=== PATIENT | female | born 1945 | race Caucasian/White ===

== ENCOUNTER 2019-03-17 05:12 | Day surgery (SDC) | payer MEDICARE, SELFPAY ==
[2019-03-14 16:37] VITALS: BMI 28.7
[2019-03-17] VITALS (8 sets, daily range): BP systolic 130–176; BP diastolic 71–121; PULSE 52–100; RESP 14–25; O2SAT 98–100
--- NOTE | 2019-03-17 | ECHO_ITS ---
Patient Info Name: Ashtyn Monroe Age: 73 years : 1945 Gender: Female Ht: 63 in Wt: 162 lbs BSA: 1.83 m2 HR: 96 bpm Technical Quality: Good Exam Date: 03/17/2019 7:11 AM Exam Location: [facility] Pul[facility] Patient Status: Outpatient Admit Date: 03/17/2019 Staff Ordering Physician: Milo Larson DO Safety Engineer: Connie Merchant RDCS Attending Provider: Milo Larson DO Referring Physician: Neo MEHTA; Exam Type: CA echo transesophageal Study Info Indications I48.0 - Paroxysmal atrial fibrillation Complete two-dimensional, color flow and Doppler transesophageal study is performed. Procedure Details Risks/benefits/alternative treatment discussed with patient and she is agreeable for procedure. Conscious sedation with Versed and Fentanyl given. TIM probe advanced to posterior oropharynx and probe swallowed into esophagus without incident. Images were obtained. Agitated saline administered x 1. TIM probe withdrawn and no blood noted on TIM probe tip. No complications. She tolerated procedure well. Summary 1. Left ventricular chamber dimension is normal. 2. Left ventricular systolic function is normal with an ejection fraction 50-55%. 3. Right ventricular chamber dimension is moderately enlarged. 4. Right ventricular systolic function is moderately reduced. 5. Left atrial chamber dimension is moderately enlarged. 6. There is trace aortic valve regurgitation. 7. There is mild mitral valve regurgitation. 8. There is mild to moderate tricuspid valve regurgitation. Left Ventricle Diastolic function is not assessed. Left ventricular systolic function is normal with an ejection fraction 50-55%. Left ventricular chamber dimension is normal. Right Ventricle Right ventricular systolic function is moderately reduced. Right ventricular chamber dimension is moderately enlarged. Left Atria Left atrial chamber dimension is moderately enlarged. Right Atria Right atrial chamber dimension is normal. Atrial Septum Intact interatrial septum visualized by color flow and agitated saline imaging. Atrial Appendage There is no thrombus visualized in the left atrial appendage. Aortic Valve The aortic valve is trileaflet. There is no aortic valve stenosis. There is trace aortic valve regurgitation. Pulmonic Valve There is no pulmonic regurgitation. Mitral Valve There is no mitral valve stenosis. There is mild mitral valve regurgitation. Tricuspid Valve RVSP is not measured. There is mild to moderate tricuspid valve regurgitation. Pericardium/Pleural There is no pericardial effusion. Inferior Vena Cava Not well visualized inferior vena cava. Aorta The aortic root size at the sinus of Valsalva is normal. Report Signatures
--- NOTE | 2019-03-17 06:05 | ECG_ITS ---
Measurements Intervals [place] Rate: 109 P: AR: 0 QRS: -5 QRSD: 95 T: 28 QT: 370 QTc: 499 Interpretive Statements ATRIAL FIBRILLATION WITH RAPID VENTRICULAR RESPONSE INCOMPLETE RIGHT BUNDLE BRANCH BLOCK DELAYED PRECORDIAL R/S TRANSITION BORDERLINE ST-T WAVE ABNORMALITY- LATERAL LEADS ABNORMAL ECG Electronically Signed On 03-17-2019 7:21:45 BOTTLING SUPERVISOR by Milo Larson D.O.
[2019-03-17 07:24] LABS: Blood Urea Nitrogen 17 mg/dL (7-17); Calcium 8.1 mg/dL (8.4-10.2); Carbon Dioxide 22 mmol/L (22-30); Chloride 104 mmol/L (98-107); Estimated CRCL calculation 51 ml/min; Estimated Glomerular Filt Rate > 60; Glucose 100 mg/dL (65-105); Potassium 4.2 mmol/L (3.4-5.0); Sodium 135 mmol/L (137-145)
--- NOTE | 2019-03-17 07:51 | SUR.OPER ---
[address] [facility] study
--- NOTE | 2019-03-17 07:55 | ECG_ITS ---
Measurements Intervals [place] Rate: 57 P: 14 NH: 182 QRS: -10 QRSD: 100 T: 17 QT: 459 QTc: 449 Interpretive Statements SINUS BRADYCARDIA INCOMPLETE RIGHT BUNDLE BRANCH BLOCK DELAYED PRECORDIAL R/S TRANSITION VOLTAGE CRITERIA FOR LVH BORDERLINE ECG Electronically Signed On 03-17-2019 8:11:43 ROOFING LABORER by Milo Larson D.O.
--- NOTE | 2019-03-17 08:03 | SUR.OPER ---
see moderate sedation flowheet for medication administration
--- NOTE | 2019-03-17 08:48 | WPDCARDVER ---
Cardioversion Cardioversion Date of procedure: 03/17/19 Procedure: DC Cardioversion Indications: Symptomatic Atrial fibrillation with RVR Description of procedure: Risks/benefits/alternative treatment discussed with patient and she gave informed consent. TIM was performed and no HONEY or LA thrombus noted. BP 165-100 mmHg and HR 114 bpm in atrial fibrillation. Defibrillator pads placed on anterior and posterior chest. Adequate sedation given. Defibrillation set at 200 J biphasic synchonized energy and administered x1. Episcopal of sinus rhythm achieved. Patient tolerated procedure well. No complication. Sedation: Versed 3 mg and Fentanyl 25 mcg IV given for sedation. Conclusion: 1. Successful DC cardioversion from atrial fibrillation to Sinus rhythm.
== END 2019-03-17 09:30 | disposition home or self-care (01) ==
PROVIDERS: Visit Provider Internal Medicine Cardiovascular Disease
PROC: (CPT 93312; principal; 2019-03-17 08:00)
PROC: 5A2204Z Restoration of Cardiac Rhythm, Single (ICD-10-PCS; 2019-03-17 08:00)
DX: I48.0 Paroxysmal atrial fibrillation (principal); I10 Essential (primary) hypertension; Z79.899 Other long term (current) drug therapy
CPT/HCPCS: 36415; 80048; 83735; 92960; 93005; 93312; 93320; 93325; J2250; J3010

== ENCOUNTER 2022-03-13 08:58 | Outpatient (CLI) | payer MEDICARE, SELFPAY ==
[2022-03-13 10:06] LABS: Cholesterol 197 mg/dL (0-200); HDL Direct 66 mg/dL (40-60); LDL Cholesterol Calculated 120 mg/dL (<130); Triglycerides 54 mg/dL (0-150)
== END 2022-03-13 08:59 | disposition home or self-care (01) ==
LOC: CHSLAB 09:00
PROVIDERS: PCP Internal Medicine Cardiovascular Disease; Visit Provider Internal Medicine Cardiovascular Disease
DX: I10 Essential (primary) hypertension (principal)
CPT/HCPCS: 36415; 80061

== ENCOUNTER 2022-08-03 10:08 | Emergency (ER) | payer MEDICARE, SELFPAY ==
--- NOTE | ~2022-08-03 | US_ITS ---
Duplex Sonography of the bilateral lower extremities: Indication: Swelling Sagittal and transverse B-mode images as well as color-flow imaging were performed on the right and l eft femoral and popliteal veins. B-mode examination was done without and with compression in the tra nsverse plane. There is good visualization of the bilateral common femoral, proximal profunda femora l, superficial femoral, greater saphenous, and popliteal veins. Normal flow was seen on color-flow im aging. Normal compressibility was demonstrated. Visualized bilateral calf veins are also patent. Impression: No evidence of deep vein thrombosis involving either lower extremity. Reviewed, dictated and finalized at location M. Impression: No evidence of deep vein thrombosis involving either lower extremit y.
--- NOTE | ~2022-08-03 | CT_ITS ---
EXAMINATION: CTA chest PE protocol DATE: 08/03/2022 11:37 CDT INDICATION: Shortness of breath for 3 weeks. Elevated d-dimer. TECHNIQUE: Computed tomographic angiography (CTA) of the chest was performed with 100 mL Omnipaque-35 0 intravenous contrast. The dose-length product was 248.71 mGy-cm. Maximum intensity projection 3D-re constructions of the aorta and other arteries were constructed by the technologist on a separate work station. Automated exposure control and iterative reconstruction technique were employed. COMPARISON: Chest x-ray dated 11/09/2015. FINDINGS: Heart size normal. No significant pleural or pericardial effusion. Study is technically lucas quate. There are filling defects in right upper lobe segmental and subsegmental pulmonary arteries, c onsistent with pulmonary embolism, small thrombus burden. No focal airspace consolidation. No pneumot horax. No endobronchial lesions. No focal pulmonary nodules or masses. IMPRESSION: 1. Small filling defects right upper lobe segmental and subsegmental pulmonary arteries, consistent w ith pulmonary embolism, small thrombus burden. Reviewed, dictated and finalized at location L. IMPRESSION: 1. Small filling defects right upper lobe segmental and subsegmental pulmonary arteries, consistent with pulmonary embolism, small thrombus burden.
[2022-08-03 10:09] VITALS: BP 101/76; PULSE 112; RESP 16; O2SAT 96
[2022-08-03 10:19] VITALS: TEMP 36.3
--- NOTE | 2022-08-03 10:19 | ECG_ITS ---
Measurements Intervals [place] Rate: 71 P: AR: 0 QRS: -16 QRSD: 105 T: 74 QT: 425 QTc: 463 Interpretive Statements ATRIAL FIBRILLATION INCOMPLETE RIGHT BUNDLE BRANCH BLOCK [90+ ms QRS DURATION, TERMINAL R IN V1/V2, 40+ ms S IN I/aVL/V4/V5/V6] NONSPECIFIC ST & T-WAVE ABNORMALITY ABNORMAL RHYTHM ECG COMPARED TO ECG 03/17/2019 07:59:34 ATRIAL FIBRILLATION NOW PRESENT T-WAVE ABNORMALITY NOW PRESENT Electronically Signed On 08-03-2022 13:44:27 CDT by Debbie Pitts M.D.
--- NOTE | 2022-08-03 10:27 | PC.NURSE ---
cardiopulmonary called for EKG, fur cutting machine operator at bedside for lab draw.
[2022-08-03 10:33] LABS: Basophils Absolute Auto 0.02 K/mm3 (0.00-0.10); Basophils Percent Auto 0.3 % (0.0-1.0); Eosinophils Absolute Auto 0.21 K/mm3 (0.02-0.50); Eosinophils Percent Auto 3.2 % (1.0-6.0); Hematocrit 38.3 % (35.0-42.0); Hemoglobin 12.4 g/dL (11.7-13.8); Immature Granulocyte Absolute 0.03 K/mm3 (0.00-0.00); Immature Granulocyte Percent A 0.5 % (0.0-0.0); Lymphocytes Absolute Auto 0.59 K/mm3 (1.10-4.50); Lymphocytes Percent Auto 8.9 % (18.0-42.0); Mean Corpuscular HGB Conc 32.4 g/dL (32.0-36.0); Mean Corpuscular Volume 86.5 fL (78.0-102.0); Mean Platelet Volume 11.1 fl (9.2-11.8); Monocytes Absolute Auto 0.64 K/mm3 (0.10-0.90); Monocytes Percent Auto 9.6 % (2.0-11.0); Neutrophils Absolute Auto 5.2 K/mm3 (1.7-7.2); Neutrophils Percent Auto 77.5 % (50.0-70.0); Platelet Count Result 147 K/mm3 (150-420); Red Blood Count 4.43 M/mm3 (4.20-5.40); Red Cell Distribution Width 14.6 % (11.6-14.4); White Blood Count 6.7 K/mm3 (4.8-10.8)
[2022-08-03 10:40] VITALS: PULSE 77; RESP 16
[2022-08-03 10:49] LABS: D Dimer 0.66 mg/L (0.19-0.50)
[2022-08-03 10:58] LABS: Alanine Aminotransferase 32 U/L (14-59); Alkaline Phosphatase 98 U/L (46-116); Anion Gap 8 mmol/L (8-16); Aspartate Amino Transferase 25 U/L (15-37); Bilirubin,Total 0.8 mg/dL (0.00-1.00); Blood Urea Nitrogen 14 mg/dL (7-18); Calcium 7.8 mg/dL (8.5-10.1); Carbon Dioxide 28 mmol/L (21-32); Chloride 100 mmol/L (98-108); Estimated CRCL calculation 44 ml/min; Estimated Glomerular Filt Rate > 60; Glucose 122 mg/dL (70-99); Osmolality Calculated 283 mOsm/kg (285-295); Potassium 3.5 mmol/L (3.5-5.1); Sodium 136 mmol/L (136-145); Thyroid Stimulating Hormone 2.02 uIU/mL (0.36-3.74); Total Protein 6.2 g/dL (6.4-8.2); Troponin I 9.2 ng/L (0.00-60.4)
[2022-08-03 10:59] VITALS: PULSE 81
[2022-08-03 11:08] LABS: NT Pro B Type Natriuretic Pept 5532 pg/mL (0-450)
--- NOTE | 2022-08-03 11:15 | PC.NURSE ---
radiology aide at bedside for transport pt to CT scan. IV WNL, placed by RN prior to departure to scan.
--- NOTE | 2022-08-03 11:30 | PC.NURSE ---
patient returned from imaging, awaiting results.
--- NOTE | 2022-08-03 11:49 | PC.NURSE ---
patient ambulatory to bathroom without difficulty.
[2022-08-03 11:55] VITALS: BP 123/90; PULSE 80; RESP 18; O2SAT 94
[2022-08-03] MEDS: FUROSEMIDE INJ 40 MG/4 ML VIAL IV PUSH (12:14)
--- NOTE | 2022-08-03 12:45 | ED.WEAKNESS ---
HPI - Weakness General Chief complaint: Weakness Stated complaint: A Fib Time Seen by Provider: 08/03/22 10:09 Source: patient and family Mode of arrival: ambulatory Limitations: no limitations History of Present Illness HPI Narrative: this is 76-year-old female with a history of atrial fibrillation had ablation twice and follows with her manager truck and recently started on flecainide patient called her manager truck today complaining of weakness and some mild shortness of breath and was advised to present to the emergency department. Patient complains of generalized weakness and some mild shortness of breath with no chest pain no fever chills no nausea vomiting no abdominal pain. Patient has a history of atrial fibrillation is currently on Eliquis 5mg b.i.d.. Patient no known history of CHF. Her vitals are stable blood pressure is stable with a heart rate that is in the 80s. Complaint: generalized weakness Onset (ago): day(s) Duration: constant Severity: mild Related Data Home Medications Medication Instructions Recorded Confirmed calcium carbonate 600 mg calcium 600 mg PO DAILY 01/23/19 08/03/22 (1,500 mg) tablet (Calcium) levothyroxine 88 mcg tablet 100 mcg PO DAILY 01/23/19 08/03/22 (Synthroid) omega-3 fatty acids-fish oil 300 1 cap PO DAILY 01/23/19 08/03/22 mg-500 mg capsule (Fish Oil) magnesium oxide,aspartate,citr 400 mg PO QAM 03/07/19 08/03/22 (Triple Magnesium Complex) nivolumab 40 mg/4 mL intravenous 40 mg IV MONTHLY 07/04/19 08/03/22 solution (Opdivo) metoprolol succinate 50 mg 50 mg PO DAILY 03/09/22 08/03/22 tablet,extended release 24 hr (Toprol XL) lisinopril 20 mg tablet (Zestril) 20 mg PO BID 08/03/22 08/03/22 Allergies Allergy/AdvReac Type Severity Reaction Status Date / Time No Known Drug Allergies Allergy Unknown Unknown Verified 08/03/22 10:33 Review of Systems Review of Systems: All systems reviewed & are unremarkable except as noted in HPI and below PMFSH Past Medical History Medical History Essential hypertension (09/12/11) PAF (paroxysmal atrial fibrillation) Palpitations with regular cardiac rhythm (10/27/14) Preoperative cardiovascular examination (03/22/15) Screening for breast cancer (06/08/14) Vaccination against Streptococcus pneumoniae greater than 5 years ago (11/27/14) Surgical History Surgical History History of appendectomy History of cholecystectomy History of partial thyroidectomy S/P left knee arthroscopy Family History Family History Father Hypertension Family history of coronary artery disease Mother Family history of type 2 diabetes mellitus Hypertension Father Hypertension Family history of coronary artery disease Mother Hypertension Family history of type 2 diabetes mellitus Father Family history of coronary artery disease Hypertension Mother Hypertension Family history of type 2 diabetes mellitus Other Family history of malignant neoplasm of skin Social History Social History Smoking status: Never smoker Alcohol intake: never Substance use: never Living arrangements: with family Occupation/Education: retired 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 Gender identity (if verbalized by the patient): Female Exam Const: General: healthy appearing Nutritional Appearance: well nourished Orientation/consciousness: patient oriented x3 Limitations: no limitations HENMT: Head: normal to inspection Eyes: Conjunctivae: conjunctivae normal Neck: Neck: normal visual inspection Chest: Chest palpation & inspection: normal inspection of the chest Resp: Effort & Inspection: normal respiratory effort Auscultation: clear to auscultation bilaterally Cardio:
--- NOTE | 2022-08-03 12:53 | PC.NURSE ---
Dr. Ricks at patient bedside for update. patient spouse at bedside.
--- NOTE | 2022-08-03 12:57 | PC.NURSE ---
patient ambulatory to bathroom at this time without difficutly.
[2022-08-03 13:04] VITALS: BP 127/86; PULSE 85; RESP 20; O2SAT 96
== END 2022-08-03 13:15 | disposition home or self-care (01) ==
PROVIDERS: Emergency Provider Emergency Medicine
DX: I48.91 Unspecified atrial fibrillation (principal); I26.99 Other pulmonary embolism without acute cor pulmonale; R53.1 Weakness; I10 Essential (primary) hypertension; R06.02 Shortness of breath
CPT/HCPCS: 36415; 71275; 80053; 83880; 84443; 84484; 85025; 85380; 93005; 93970; 96374; 99284; J1940; Q9967

== ENCOUNTER 2022-08-10 00:23 | Day surgery (SDC) | payer MEDICARE, SELFPAY ==
[2022-08-09 17:07] VITALS: BMI 28.3
--- NOTE | 2022-08-10 | ECHO_ITS ---
Patient Info Name: Ashtyn Monroe Age: 76 years : 1945 Gender: Female Ht: 63 in Wt: 160 lbs BSA: 1.82 m2 HR: 83 bpm BP: 154 / 105 mmHg Heart Rhythm: Atrial Fibrillation Technical Quality: Good Exam Date: 08/10/2022 1:14 PM Exam Location: [facility] Pulmonary Exam Room: Anesthesia [facility] Patient Status: Outpatient Admit Date: 08/10/2022 Staff Ordering Physician: Milo Larson DO Degree Clerk: Maria Teresa Mancilla RDCS Attending Provider: Milo Larson DO Referring Physician: Neo MEHTA; Exam Type: CA echo transesophageal Study Info Indications - Pre cardioversion Afib Complete two-dimensional, color flow and Doppler transesophageal study is performed. Contrast/Agitated Saline Contrast/Ag. Saline: Agitated Saline Amount: 20.00 ml Existing IV Access: Yes Procedure Details Risks/benefits/alternative to TIM discuss with patient and she gave informed consent. She was monitored electrocardiographically, vitals. She was sedated as per anesthesia. TIM probe advanced into esophagus without incident. Multiple images were obtained at various levels of esophagus. Agitated saline injected x1. TIM probe withdrawn and no blood noted on TIM probe tip. Patient tolerated procedure well with no complications. Summary 1. Left ventricular chamber dimension is normal. 2. There is moderate concentric increased left ventricular wall thickness. 3. The left ventricular diastolic function is indeterminate as it was not assessed. 4. Left ventricular systolic function is normal with an ejection fraction of 60-65%. 5. Left atrial chamber dimension is moderately enlarged. 6. There is trace aortic valve regurgitation. 7. There is mild to moderate mitral valve regurgitation. 8. The prox ascending aorta size is moderately dilated. Left Ventricle Left ventricular systolic function is normal with an ejection fraction of 60-65%. Left ventricular chamber dimension is normal. There is moderate concentric increased left ventricular wall thickness. The left ventricular diastolic function is indeterminate as it was not assessed. Right Ventricle Right ventricular chamber dimension is normal. Right ventricular systolic function is normal. Left Atria Left atrial chamber dimension is moderately enlarged. Right Atria Right atrial chamber dimension is normal. Atrial Septum Agitated saline injection opacified right side cardiac chambers without shunt to left side cardiac chambers. Intact interatrial septum visualized by 2D and agitated saline imaging. Atrial Appendage There is no thrombus visualized in the left atrial appendage. Aortic Valve The aortic valve is trileaflet. There is no aortic valve stenosis. There is trace aortic valve regurgitation. Pulmonic Valve There is no pulmonic regurgitation. Mitral Valve There is no mitral valve stenosis. There is mild to moderate mitral valve regurgitation. Tricuspid Valve No tricuspid regurgitation. Pericardium/Pleural There is no pericardial effusion. Inferior Vena Cava Inferior vena cava is not well visualized. Aorta The aortic root size at the sinus of Valsalva is normal. The prox ascending aorta size is moderately dilated. Report Signatures
--- NOTE | 2022-08-10 10:30 | ECG_ITS ---
Measurements Intervals [place] Rate: 53 P: 53 MS: 242 QRS: 31 QRSD: 114 T: 50 QT: 511 QTc: 480 Interpretive Statements SINUS BRADYCARDIA WITH FIRST DEGREE AV BLOCK INCOMPLETE RIGHT BUNDLE BRANCH BLOCK [90+ ms QRS DURATION, TERMINAL R IN V1/V2, 40+ ms S IN I/aVL/V4/V5/V6] ABNORMAL ECG COMPARED TO ECG 08/10/2022 11:41:56 SINUS RHYTHM REPLACES ATRIAL FIBRILLATION Electronically Signed On 08-11-2022 16:59:45 CDT by Govind Olson M.D.
[2022-08-10 11:49] VITALS: BP 147/78; PULSE 62; RESP 19; TEMP 36.4; O2SAT 94; BMI 28.3
[2022-08-10 12:13] LABS: Anion Gap 5 mmol/L (8-16); Blood Urea Nitrogen 19 mg/dL (7-17); Calcium 7.8 mg/dL (8.4-10.2); Carbon Dioxide 28 mmol/L (22-30); Chloride 105 mmol/L (98-107); Estimated CRCL calculation 43 ml/min; Estimated Glomerular Filt Rate > 60; Glucose 89 mg/dL (65-110); Magnesium 2.3 mg/dL (1.6-2.3); Potassium 4.6 mmol/L (3.4-5.0); Sodium 138 mmol/L (137-145)
--- NOTE | 2022-08-10 12:30 | ECG_ITS ---
Measurements Intervals [place] Rate: 62 P: CA: 0 QRS: -18 QRSD: 105 T: 61 QT: 451 QTc: 459 Interpretive Statements ATRIAL FIBRILLATION INCOMPLETE RIGHT BUNDLE BRANCH BLOCK [90+ ms QRS DURATION, TERMINAL R IN V1/V2, 40+ ms S IN I/aVL/V4/V5/V6] MINIMAL ST DEPRESSION [0.025+ mV ST DEPRESSION] ABNORMAL RHYTHM ECG COMPARED TO ECG 08/03/2022 10:36:05 NO SIGNIFICANT CHANGES Electronically Signed On 08-10-2022 11:54:15 CDT by Laurence Rodriguez M.D.
--- NOTE | 2022-08-10 13:07 | WPDANESEPPF ---
Anes - Initial Pre Proc Eval Procedure: Operation Date: 08/10/22 13:00 Proposed Procedures p Trans Esophageal Echo - Milo Larson DO s Electrical Cardioversion - Milo Larson DO Date/Time: 08/10/22 13:07 Surgeon: Milo Larson DO Pre Op Diagnosis: A-FIB Patient Data Age: 76 Gender: F Height: 1.6 m Weight: 72.7 kg Last Vital Signs Temp 97.6 F 08/10/22 11:49 Pulse 62 08/10/22 11:49 Resp 19 08/10/22 11:49 BP 147/78 H 08/10/22 11:49 Pulse Ox 94 08/10/22 11:49 O2 Del Method Room Air 08/10/22 11:49 Allergies Allergy/AdvReac Type Severity Reaction Status Date / Time No Known Drug Allergies Allergy Unknown Unknown Verified 08/10/22 11:47 Home Medications Medication Instructions Recorded Confirmed Type calcium carbonate 600 mg calcium 600 mg PO DAILY 01/23/19 08/09/22 History (1,500 mg) tablet (Calcium) levothyroxine 88 mcg tablet 100 mcg PO DAILY 01/23/19 08/09/22 History (Synthroid) omega-3 fatty acids-fish oil 300 1 cap PO DAILY 01/23/19 08/09/22 History mg-500 mg capsule (Fish Oil) magnesium oxide,aspartate,citr 400 mg PO QAM 03/07/19 08/09/22 History (Triple Magnesium Complex) nivolumab 40 mg/4 mL intravenous 40 mg IV MONTHLY 07/04/19 08/09/22 History solution (Opdivo) metoprolol succinate 50 mg 50 mg PO DAILY 03/09/22 08/09/22 History tablet,extended release 24 hr (Toprol XL) apixaban 5 mg tablet (Eliquis) See Rx Instructions .Route 05/03/22 08/09/22 Rx .COMPLEX #60 tabs flecainide 100 mg tablet 100 mg PO Q12H #60 tabs 07/18/22 08/09/22 Rx furosemide 20 mg tablet (Lasix) 20 mg PO DAILY #20 tabs 08/03/22 08/09/22 Rx lisinopril 20 mg tablet (Zestril) 20 mg PO BID 08/03/22 08/09/22 History Laboratory Tests 08/10/22 11:46 Sodium 138 mmol/L (137-145) Potassium 4.6 mmol/L (3.4-5.0) Chloride 105 mmol/L (98-107) Carbon Dioxide 28 mmol/L (22-30) Anion Gap 5 L mmol/L (8-16) BUN 19 H mg/dL (7-17) Creatinine 0.90 mg/dL (0.7-1.0) Estim Creat Clear Calc 43 ml/min Estimated GFR > 60 (59 - ) Glucose 89 mg/dL (65-110) Calcium 7.8 L mg/dL (8.4-10.2) Magnesium 2.3 mg/dL (1.6-2.3) Patient hx anesthesia problems: none Family hx anesthesia problems: none Results Review: All pre-operative results and documents have been reviewed as part of the pre-operative evaluation. [facility] Past Medical History Medical History Essential hypertension (09/12/11) PAF (paroxysmal atrial fibrillation) Palpitations with regular cardiac rhythm (10/27/14) Preoperative cardiovascular examination (03/22/15) Screening for breast cancer (06/08/14) Vaccination against Streptococcus pneumoniae greater than 5 years ago (11/27/14) Surgical History Surgical History History of appendectomy History of cholecystectomy History of partial thyroidectomy S/P left knee arthroscopy Family History Family History Father Hypertension Family history of coronary artery disease Mother Family history of type 2 diabetes mellitus Hypertension Father Hypertension Family history of coronary artery disease Mother Hypertension Family history of type 2 diabetes mellitus Father Family history of coronary artery disease Hypertension Mother Hypertension Family history of type 2 diabetes mellitus Other Family history of malignant neoplasm of skin Social History Social History Smoking status: Never smoker Alcohol intake: never Substance use: never Substance use type: does not use Living arrangements: with family Occupation/Education: retired 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 Gender identity (if verbalized by the patient): Female Spir
--- NOTE | 2022-08-10 13:31 | WPDCARDVER ---
Cardioversion Cardioversion Date of procedure: 08/10/22 Procedure: DC Cardioversion Pre-op diagnosis: Atrial fibrillation Post-op diagnosis: Same Indications: Symptomatic atrial fibrillation Description of procedure: Risks/benefits/alternative to cardioversion discuss with patient and she gave informed consent. After TIM performed which showed no left atrial or left atrial appendage thrombus, DC cardioversion performed. It was set at 200 J synchronized biphasic energy, and successful after one attempt at restoring sinus rhythm. No immediate complications. Patient tolerated procedure well with no incidents. Sedation: As per anesthesia Conclusion: 1. Successful DC cardioversion to sinus rhythm. [facility] Billing for Cardioversion: Cardioversion
[2022-08-10 13:40] VITALS: BP 125/66; PULSE 47; RESP 20; O2SAT 100
[2022-08-10 13:50] VITALS: BP 114/61; PULSE 46; RESP 16; O2SAT 98
[2022-08-10 14:05] VITALS: BP 126/74; PULSE 47; RESP 16; O2SAT 99
[2022-08-10 14:20] VITALS: BP 125/67; PULSE 45; RESP 16; O2SAT 98
[2022-08-10 14:40] VITALS: BP 156/73; PULSE 47; RESP 20; O2SAT 100
== END 2022-08-10 14:51 | disposition home or self-care (01) ==
PROVIDERS: PCP Internal Medicine Cardiovascular Disease; Visit Provider Internal Medicine Cardiovascular Disease
PROC: (CPT 93312; principal; 2022-08-10 13:00)
PROC: 5A2204Z Restoration of Cardiac Rhythm, Single (ICD-10-PCS; 2022-08-10 13:00)
DX: I48.0 Paroxysmal atrial fibrillation (principal); I34.0 Nonrheumatic mitral (valve) insufficiency; I71.21 Aneurysm of the ascending aorta, without rupture; I10 Essential (primary) hypertension; C43.9 Malignant melanoma of skin, unspecified; I26.99 Other pulmonary embolism without acute cor pulmonale; Z79.01 Long term (current) use of anticoagulants
CPT/HCPCS: 36415; 80048; 83735; 92960; 93312; 93320; 93325; J2704

== ENCOUNTER 2022-08-22 12:04 | Outpatient (CLI) | payer MEDICARE, SELFPAY ==
--- NOTE | 2022-08-22 13:03 | ECHO_ITS ---
Patient Info Name: Ashtyn Monroe Age: 76 years : 1945 Gender: Female Ht: 63 in Wt: 160 lbs BSA: 1.82 m2 HR: 56 bpm BP: 177 / 92 mmHg Heart Rhythm: Sinus Rhythm Technical Quality: Good Exam Date: 08/22/2022 1:10 PM Exam Location: [facility] Pulmonary Patient Status: Outpatient Admit Date: 08/22/2022 Staff Ordering Physician: Milo Larson DO Sweat Box Attendant: Juliette Ames RDCS Attending Provider: Milo Larson DO Referring Physician: Neo MEHTA; Exam Type: CA echo doppler color flow Study Info Indications I48.0 - Paroxysmal atrial fibrillation Complete two-dimensional, color flow and Doppler transthoracic echocardiogram is performed. Summary 1. Complete two-dimensional, color flow and Doppler transthoracic echocardiogram is performed. 2. Left ventricular chamber dimension is normal. 3. Left ventricular systolic function is normal, estimated at 65-70%. 4. The left ventricular diastolic function is abnormal. 5. e' .04 suggestive of diastolic dysfunction. 6. Left atrial chamber dimension is moderately enlarged. 7. Mild left to right atrial shunt noted by color doppler suggestive of atrial septal defect or patent foramen ovale. 8. There is mild aortic valve sclerosis. 9. There is mild aortic valve regurgitation. 10. There is trace mitral valve regurgitation. 11. There is mild tricuspid valve regurgitation. 12. Mild pulmonary hypertension, estimated pulmonary arterial systolic pressure is 47 mmHg. 13. There is mild to moderate pulmonic regurgitation. Left Ventricle e' .04 suggestive of diastolic dysfunction. Left ventricular chamber dimension is normal. Left ventricular systolic function is normal, estimated at 65-70%. The left ventricular diastolic function is abnormal. Right Ventricle Right ventricular chamber dimension is normal. Right ventricular systolic function is normal. Left Atria Left atrial chamber dimension is moderately enlarged. Right Atria Right atrial chamber dimension is normal. Atrial Septum Mild left to right atrial shunt noted by color doppler suggestive of atrial septal defect or patent foramen ovale. Aortic Valve The aortic valve is trileaflet. There is mild aortic valve sclerosis. There is no aortic valve stenosis. There is mild aortic valve regurgitation. Pulmonic Valve There is mild to moderate pulmonic regurgitation. Mitral Valve There is no mitral valve stenosis. There is trace mitral valve regurgitation. Tricuspid Valve There is mild tricuspid valve regurgitation. Mild pulmonary hypertension, estimated pulmonary arterial systolic pressure is 47 mmHg. Pericardium/Pleural There is no pericardial effusion. Inferior Vena Cava Normal inferior vena cava with >50% collapse upon inspiration consistent with normal right atrial pressure, 5 mmHg. Aorta The aortic root size at the sinus of Valsalva is normal. Left Ventricular Outflow Tract Name Value Normal LVOT 2D LVOT Diameter 2.0 cm LVOT Doppler LVOT Peak Gradient 7 mmHg LVOT Mean Gradient 3 mmHg LVOT VTI 24 cm LVOT VTI/AV VTI Ratio 0.7 LVOT Stroke Volume
== END 2022-08-22 12:05 | disposition home or self-care (01) ==
PROVIDERS: PCP Internal Medicine Cardiovascular Disease; Visit Provider Internal Medicine Cardiovascular Disease
DX: I48.0 Paroxysmal atrial fibrillation (principal); I27.20 Pulmonary hypertension, unspecified; I35.8 Other nonrheumatic aortic valve disorders; I08.3 Combined rheumatic disorders of mitral, aortic and tricuspid valves
CPT/HCPCS: 93306